=== PATIENT | male | born 1975 | race Caucasian/White ===

== ENCOUNTER 2021-01-30 09:50 | Emergency (ER) | payer BC ==
[~2021-01-30 09:50] MED LIST: Lactated Ringers 1,000 ML IV ONE; fentaNYL 50 MCG/ML SDV IVPUSH ONE
[2021-01-30] MEDS: fentaNYL 50 MCG/ML SDV IVPUSH ONE (09:50)
[2021-01-30] MEDS ORDERED: fentaNYL 50 MCG/ML SDV ONE ×2 (09:58→10:12)
[2021-01-30] MEDS ORDERED: LORazepam 2 MG/ML SDV ONE (09:59)
[2021-01-30] MEDS ORDERED: LORazepam 2 MG/ML SDV IVPUSH ONE (10:00)
[2021-01-30] MEDS ORDERED: Etomidate 2 MG/ML 20 ML SDV IVPUSH ONE ×2 (10:07)
[2021-01-30] MEDS ORDERED: Rocuronium 100 MG/10 ML MDV IV ONE (10:07)
[2021-01-30] MEDS ORDERED: Rocuronium 50 MG/5 ML Vial IVPUSH ONE (10:08)
[2021-01-30] MEDS ORDERED: fentaNYL/Normal Saline 250 ML ONE (10:11)
[2021-01-30] MEDS ORDERED: fentaNYL 50 MCG/ML SDV IVPUSH ONE ×2 (10:14→11:57)
[2021-01-30] MEDS ORDERED: fentaNYL/Normal Saline 2,500 MCG in Premix Bag 1 BAG IV PRN (10:20)
[2021-01-30 10:32] LABS: BLOOD UREA NITROGEN,BUN 20 mg/dL (7.0-18.0); CARBON DIOXIDE,CO2 20.9 mmol/L (21.0-32.0); CHLORIDE,CL 105 mmol/L (98-107); GLUCOSE RANDOM 327 mg/dL (74-106); POTASSIUM,K 5.3 mmol/L (3.5-5.1); SODIUM,NA 142 mmol/L (136-148)
[2021-01-30] MEDS ORDERED: Sugammadex Sodium 200 MG/2 ML VIAL IV ONE (10:35)
[2021-01-30 10:41] LABS: ACETAMINOPHEN <2.0 ug/mL
[2021-01-30] MEDS ORDERED: Diphtheria,Pertussis(Acell),Tetanus Vaccine 0.5 ML Syringe IM ONE (10:44)
--- NOTE | 2021-01-30 10:54 | CR ---
INDICATION: Post intubation COMPARISON: None TECHNIQUE: Single view of the chest was acquired as an AP supine study FINDINGS: TUBES AND LINES: Endotracheal tube normally located. Nasogastric tube likely ending in the gastric fundus HEART AND MEDIASTINUM: The heart size is normal. The mediastinal contour appears normal for patient age. LUNGS AND PLEURAL SPACES: Patchy airspace opacity primarily on the right, mild and diffuse.No pleural effusion or pneumothorax OSSEOUS STRUCTURES: Age-appropriate appearance. No acute focal finding. IMPRESSION: Endotracheal tube and nasogastric tube both appear to be normally located. Mild patchy airspace disease diffusely on the right. No pleural effusion or pneumothorax. Dictated by Gregory Fenton MD @ 01/30/2021 10:52:44 AM (Electronically Signed)
[2021-01-30] MEDS ORDERED: fentaNYL 100 MCG/2 ML SDV IVPUSH STA (11:58)
[2021-01-30] MEDS ORDERED: fentaNYL 100 MCG/2 ML SDV ONE (11:58)
[2021-01-30 12:41] LABS: CORONAVIRUS COVID-19 NAA NEGATIVE (NEGATIVE); INFLUENZA A NAA NEGATIVE (NEGATIVE); INFLUENZA B NAA NEGATIVE (NEGATIVE)
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
--- NOTE | 2021-01-30 15:29 | PCM.EKG ---
#1 Interpretation EKG Date: 01/30/21 Time: 10:25 Rhythm: A-Fib Rate (Beats/Min): 103 [place]: Normal P-Wave: Absent QRS: Normal ST-T: Normal (Inferior and lateral T wave inversions) QT: Prolonged Comparison: NA - No Prior EKG EKG Interpretation Comments: Atrial Fibrillation with prolonged QT and inferior lateral T wave inversions.
[2021-01-30] MEDS ORDERED: Lactated Ringers 2,000 ML IV ONE (19:51)
[2021-01-30] MEDS ORDERED: Lactated Ringers 1,000 ML IV SCH (20:00)
[2021-01-31] MEDS: fentaNYL 50 MCG/ML SDV IVPUSH ONE (11:16)
== END 2021-01-30 12:05 ==
LOC: MW.ED 09:50
DX: T33.522A Superficial frostbite of left hand, initial encounter (principal); T33.521A Superficial frostbite of right hand, initial encounter; T33.822A Superficial frostbite of left foot, initial encounter; T33.821A Superficial frostbite of right foot, initial encounter; T68.XXXA Hypothermia, initial encounter; T79.6XXA Traumatic ischemia of muscle, initial encounter; N17.9 Acute kidney failure, unspecified; E87.2 Acidosis; Z20.822 Contact with and (suspected) exposure to COVID-19; Z23 Encounter for immunization; X31.XXXA Exposure to excessive natural cold, initial encounter
CPT/HCPCS: 0240U; 31500; 36415; 36600; 43752; 51702; 71045; 80053; 80143; 80179; 80305; 80307; 81001; 82550; 82803; 83605; 83735; 84443; 85025; 85610; 85730; 90471; 90715; 93005; 96365; 96375; 96376; 99291; 99292; G0390; J2060; J3010; J3490; J7120